=== PATIENT | female | born 2005 | race African-American/Black ===

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

== ENCOUNTER 2023-04-30 16:43 | Emergency (ER) | payer OTHER ==
[2023-04-30] MEDS ORDERED: IBUPROFEN 600 MG TAB PO STA (16:59)
[2023-04-30] MEDS ORDERED: ACETAMINOPHEN TAB 325 MG TAB PO STA (16:59)
--- NOTE | 2023-04-30 17:01 | ED ---
ENT HPI - General Chief complaint: ENT Stated complaint: Fever,Sore Throat Time Seen by Provider: 04/30/23 16:48 Source: patient Mode of arrival: ambulatory Limitations: no limitations - History of Present Illness Initial comments: 18-year-old female presenting with chief complaint of sore throat. She states symptoms have been ongoing since the . She admits to fevers and right-sided ear pain and fullness. She also admits to cough and congestion. No chest pain or difficulty breathing. No nausea vomiting or diarrhea. No difficulty swallowing. No drooling or voice changes. - Related Data Home Medications Medication Instructions Recorded Confirmed No Known Home Medications 06/04/20 08/02/20 Allergies Allergy/AdvReac Type Severity Reaction Status Date / Time No Known Allergies Allergy Verified 08/02/20 13:31 Review of Systems ROS Statement: Those systems with pertinent positive or pertinent negative responses have been documented in the HPI. ROS Other: All systems not noted in ROS Statement are negative. Past Medical History Past Medical History: No Reported History History of Any Multi-Drug Resistant Organisms: None Reported Past Surgical History: No Surgical Hx Reported Past Psychological History: Anxiety, Depression Smoking Status: Vaper Past Alcohol Use History: Occasional Past Drug Use History: Heroin, Marijuana General Exam Limitations: no limitations General appearance: alert, in no apparent distress Head exam: Present: atraumatic, normocephalic Eye exam: Present: normal appearance ENT exam: Present: mucous membranes moist Expanded TM/Canal exam: Erythema: Right TM Mouth exam: Present: normal external inspection, tongue normal. Absent: drooling, trismus, muffled voice Throat exam: tonsillar erythema. negative: tonsillar exudate Neck exam: Present: normal inspection Respiratory exam: Present: normal lung sounds bilaterally. Absent: respiratory distress, wheezes, rales, rhonchi, stridor Cardiovascular Exam: Present: normal rhythm, tachycardia, normal heart sounds. Absent: systolic murmur, diastolic murmur, rubs, gallop, clicks Neurological exam: Present: alert, oriented X3 Psychiatric exam: Present: normal affect, normal mood Skin exam: Present: warm, dry Course Vital Signs 04/30/23 04/30/23 04/30/23 16:45 17:10 17:58 Temperature 99.9 F H 100.4 F H 99.5 F Pulse Rate 118 H 101 H Respiratory 20 18 Rate Blood Pressure 117/83 98/69 O2 Sat by Pulse 98 96 Oximetry Medical Decision Making - Medical Decision Making Was pt. sent in by a medical professional or institution (BASIL Bauer, ADMISSIONS RN, urgent care, hospital, or [place] [facility]...) When possible be specific @ -No Did you speak to anyone other than the patient for history (EMS, parent, family, police, friend...)? What history was obtained from this source @ -No Did you review nursing and triage notes (agree or disagree)? Why? @ -I reviewed and agree with nursing and triage notes Were old charts reviewed (outside hosp., previous admission, EMS record, old EKG, old radiological studies, urgent care reports/EKG's, [place] [facility] [place] records)? Report findings @ -No old charts were reviewed Differential Diagnosis (chest pain, altered mental status, abdominal pain women, abdominal pain men, vaginal bleeding, weakness, fever, dyspnea, syncope, headache, dizziness, GI bleed, back pain, seizure, CVA, palpatations, mental health, musculoskeletal)? @ -Differential includes otitis media, otitis externa, sinusitis, influenza, RSV, Covid, strep pharyngitis, this is not an all inclusive list EKG interpreted by me (3pts min.). @ -As above X-rays interpreted by me (1pt min.). @ -None done CT interpreted by me (1pt min.). @ -None done U/S interpreted by me (1pt. min.). @ -None done What testing was considered but not performed or refused? (CT, X-rays, U/S, labs)? Why? @ -None What meds were considered but not given or refused? Why? @ -None Did you discuss the management of the patient with other professionals (professionals i.e. BASIL Bauer, ADMISSIONS RN, lab, RT, psych nurse, social media senior associate, flame gouger, teacher, sba business development officer, rn case management)? Give summary @ -No Was smoking cessation discussed for >3mins.? @ -No Was critical care preformed (if so, how long)? @ -No Were there social determinants of health that impacted care today? How? (Homelessness, low income, unemployed, alcoholism, drug addiction, transportation, low edu. Level, literacy, decrease access to med. care, [place] [facility], rehab)? @ -No Was there de-escalation of care discussed even if they declined (Discuss DNR or withdrawal of care, Hospice)? DNR status @ -No What co-morbidities impacted this encounter? (DM, HTN, Smoking, COPD, CAD, Cancer, CVA, ARF, Chemo, Hep., AIDS, mental health diagnosis, sleep apnea, morbid obesity)? @ -None Was patient admitted / discharged? Hospital course, mention meds given and route, prescriptions, significant lab abnormalities, going to OR and other pertinent info. @ -18-year-old female presenting with chief complaint of sore throat, cough, congestion, ear pain. Upon arrival she is febrile and tachycardic. She is given Motrin and Tylenol. On physical exam there is some erythema to the right tympanic membrane. There is some tonsillar erythema as well. No midline shift. No difficulty breathing or swallowing, there is no drooling and no muffled voice. She is positive for RSV. Negative for influenza, Covid, and group A strep. She is educated on today's findings and supportive management at home with Motrin and Tylenol for fever, antihistamines and Mucinex DM for congestion and cough. Discharged home. Follow-up with PCP. Report back to ER with any new or worsening symptoms. Discussed return parameters and answered all questions. Patient conveyed verbal understanding and agreed to the plan. I discussed this case in detail with my attending Dr. Falk Undiagnosed new problem with uncertain prognosis? @ -No Drug Therapy requiring intensive monitoring for toxicity (Heparin, Nitro, Insulin, Cardizem)? @ -No Were any procedures done? @ -No Diagnosis/symptom? @ -RSV Acute, or Chronic, or Acute on Chronic? @ -acute Uncomplicated (without systemic symptoms) or Complicated (systemic symptoms)? @ -Uncomplicated Side effects of treatment? @ -No Exacerbation, Progression, or Severe Exacerbation? @ -No Poses a threat to life or bodily function? How? (Chest pain, USA, CT, pneumonia, PE, COPD, DKA, ARF, appy, cholecystitis, CVA, Diverticulitis, Homicidal, Suicidal, threat to staff... and all critical care pts) @ -No - Lab Data Lab Results 04/30/23 04/30/23 Range/Units 17:01 17:01 Influenza Type A (PCR) Not Detected (Not Detectd) Influenza Type B (PCR) Not Detected (Not Detectd) RSV (PCR) Detected A (Not Detectd) SARS-CoV-2 (PCR) Not Detected (Not Detectd) Group A Strep (PCR) NOT DETECTED (Not Detectd) Disposition Clinical Impression: RSV (respiratory syncytial virus infection) Disposition: HOME SELF-CARE Condition: Good Instructions (If sedation given, give patient instructions): Respiratory Syncytial Virus (ED) Additional Instructions: Follow-up with PCP. Report back to ER with any new or worsening symptoms. Take Mucinex DM to help with cough and congestion. Taking an [id number] antihistamine may also help with symptoms. Alternate Motrin and Tylenol as needed for fever and pain control. Is patient prescribed a controlled substance at d/c from ED?: No Referrals: Vcitor Manuel Ivey DO [Primary Care Provider] - 1-2 days Time of Disposition: 17:56
[2023-04-30] MEDS ORDERED: guaiFENesin-DM 600/30MG 1 EACH TAB.ER.12H PO STA (17:55)
[2023-04-30] MEDS ORDERED: LORATADINE 10 MG TAB PO STA (17:55)
[2023-04-30 18:00] VITALS: BP 98/69; PULSE 101; RESP 18; TEMP 99.5
== END 2023-04-30 18:02 | disposition home or self-care (01) ==
LOC: EC 16:43
DX: R50.9 Fever, unspecified (principal); B97.4 Respiratory syncytial virus as the cause of diseases classified elsewhere; F12.90 Cannabis use, unspecified, uncomplicated; F17.290 Nicotine dependence, other tobacco product, uncomplicated; Z20.822 Contact with and (suspected) exposure to COVID-19
CPT/HCPCS: 87636; 87651; 99283